=== PATIENT | female | born 1960 | race Caucasian/White ===

== ENCOUNTER 2016-10-22 20:32 | Emergency (ER) | payer OTHER ==
[2016-10-22] MEDS ORDERED: DIPHENHYDRAMINE HCL 50 MG CAPSULE ONE (21:14)
--- NOTE | 2016-10-23 07:58 | US ---
Exam: Left lower extremity venous ultrasound COMPARISON: None INDICATION: Left lower extremity swelling. FINDINGS: The deep venous system of the left lower extremity was evaluated with color flow, compression, augmentation and spectral analysis. The deep venous system of the left lower extremity from the popliteal vein up to the common femoral vein is patent without evidence of DVT. Proximal calf veins appear patent as well. IMPRESSION: No evidence of DVT in the left lower extremity. Preliminary report transmitted to the emergency department from [facility] at 2236 hours 10/22/2016.
== END 2016-10-22 23:27 | disposition home or self-care (01) ==
LOC: ED 20:32
DX: M79.89 Other specified soft tissue disorders (principal); E78.5 Hyperlipidemia, unspecified; F17.210 Nicotine dependence, cigarettes, uncomplicated; Z79.899 Other long term (current) drug therapy
CPT/HCPCS: 99283 ×2; 93971; A9270